=== PATIENT | male | born 1970 | race Caucasian/White ===

== ENCOUNTER 2016-09-24 20:34 | Emergency (ER) | payer OTHER ==
[2016-09-24 21:18] VITALS: BMI 4999.1
--- NOTE | 2016-09-24 21:35 | DIRPT ---
CLINICAL DATA: Cough and congestion for 1 week, syncopal episode after coughing today. EXAM: CHEST 2 VIEW COMPARISON: None. FINDINGS: Cardiomediastinal silhouette is normal. The lungs are clear without pleural effusions or focal consolidations. Trachea projects midline and there is no pneumothorax. Soft tissue planes and included osseous structures are non-suspicious. Large body habitus. IMPRESSION: Normal chest. Electronically Signed By: Wilfredo Martinez M.D. On: 09/24/2016 21:33
[2016-09-24] MEDS ORDERED: ALBUTEROL 6.7 GM MDI INH ONE (22:36)
[2016-09-24] MEDS ORDERED: ACETAMINOPHEN WITH CODEINE 5 ML UDC PO ONE (22:36)
--- NOTE | 2016-09-24 22:39 | EDPRACDOC ---
- General Information Chief Complaint: Flu-Like Symptoms Stated Complaint: SYNCOPE FROM COUGH Time Seen by Provider: 09/24/16 22:30 Information Source: Patient Home Medications: Home Medications Lisinopril 30 mg PO DAILY 10/29/15 Acetaminophen with Codeine [TYLENOL WITH CODEINE; [employer] with Codeine] 5 ml PO Q6H PRN #120 ml 09/25/16 Azithromycin [Zithromax] 250 mg PO DAILY #6 tablet 09/25/16 Prednisone [Deltasone, Orasone] 20 mg PO DAILY #20 tab 09/25/16 Allergies/Adverse Reactions: Allergies Allergy/AdvReac Type Severity Reaction Status Date / Time No Known Allergies Allergy Verified 09/24/16 21:18 - 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 Pt states tonight pt coughed so hard and continuous that he passed out. Denies fever, earache, cp, sob, abd pain, n/v, changes in bowel or bladder, leg swelling, rash. Duration: Since Injury Presyncopal phase:: Reports: Other (coughing) Syncopal phase:: Reports: Other (coughing) Postsyncopal phase:: Reports: Rapid recovery Prehospital care: Reports: None Associated Signs/Symptoms: Reports: None ED Past Medical History - History Reviewed Yes Nurses notes reviewed and agree except as marked - Patient Medical History Cardiac History: Reports: Hypertension Psychological History: Denies: Depression - Social Medical History Smoking Status: Never smoker ETOH: None Substance Abuse: None EDM Review of Systems - Review of Systems Constitutional: No Symptoms Reported. negative: Fever, Chills, Weakness, Fatigue, Loss of Appetite Eyes: No Symptoms Reported. negative: Redness, Blurred Vision, Double Vision, Discharge, Pain, Light Sensitive, Photophobia Ears: No Symptoms Reported. negative: Pain, Hearing Loss, Drainage, Ear Pulling Throat: Pain Nose: Congestion Mouth: No Symptoms Reported. negative: Pain, Drooling Respiratory: Cough Cardiovascular: Syncope Gastrointestinal: No Symptoms Reported. negative: Pain, Constipation, Nausea, Vomiting, Diarrhea, Melena, Formula Intolerance Genitourinary: No Symptoms Reported. negative: Dysuria, Hematuria, Frequency, Discharge, Bleeding, Testicular Pain, Neurological: No Symptoms Reported. negative: Headache, Dizziness, Seizure, Numbness, Weakness, Speech Difficulty, Gait Difficulty Musculoskeletal: No Symptoms Reported. negative: Neck, Chestwall, Ribs, Back, Shoulder, Arm, Elbow, Forearm, Wrist, Hand, Pelvis, Hip, Femur, Knee, Leg, Ankle , Foot Integumentary: No Symptoms Reported. negative: Itching, Rash, Bruising, Wound Allergic/Immunologic: No Symptoms Reported. negative: Hives, Itching Hematologic: No Symptoms Reported. negative: Lymphadenopathy, Easy Bruising, Easy Bleeding Psychiatric: No Symptoms Reported. negative: Anxiety, Depression, Hallucinations, Insomnia, Suicidal - Physical Exam Constitutional: Alert Oriented to: Time, Person, Place Last recorded Vital Signs: Last Vital Signs Temp 99.0 F 09/24/16 21:18 Pulse 83 09/24/16 22:32 Resp 20 09/24/16 22:32 BP 134/70 09/24/16 22:32 Pulse Ox 92 09/24/16 22:32 Oxygen Pulse Oxygen Saturation 92 O2 Device Room Air Oxygen Flow Rate Fraction of Inspired Oxygen ( FIO2) - HEENT Head: Normal ( normocephalic) Eye Exam: Normal (PERRL, EOMI, Sclera white) Oropharynx: Normal (Pharynx:Moist without exudate,Gums-no swelling) Tympanic Membrane: Normal ENT EAC: Normal Nose: Congestion Neck: Normal (FROM, trachea at midline) - Respiratory/Cardiovascular Respiratory: Normal - CTA (BBS clear to auscultation without adventitious sounds ) Cardiovascular: Normal (RRR without murmur, gallop or rub) - GI Auscultation: Normal (NABS) Palpation: Normal (Soft,No rebound or guarding, non distended) Tenderness: Non tender - Musculoskeletal Back: Normal (Non-Tender) Extremities: Normal (Normal tone, Pulses 2+ No cyanosis or edema, FROM) - Integumentary Skin: Normal, Warm, Dry Lymphatics: Normal (no adenopathy) - Neurologic Memory Impaired: Normal Motor Function: Normal (Normal tone, Pulses 2+ No cyanosis or edema, FROM) Mood Description: Normal Perception: Normal - Differential Diagnosis Dysrhythmia, Dehydration, Electrolyte Disorder, Hypoglycemia, Vasovagal - Results 09/24/16 22:44 09/24/16 22:44 09/25/16 01:15 Laboratory Results - last 24 hr 09/24/16 09/24/16 09/24/16 22:44 22:44 22:44 WBC 12.4 H RBC 4.85 Hgb 13.4 L Hct 40.4 L MCV 83 MCH 27.6 MCHC 33.2 RDW 13.6 Plt Count 253 MPV 8.5 Neut % (Auto) Cancelled Lymph % (Auto) Cancelled [place] % (Auto) Cancelled Eos % (Auto) Cancelled Baso % (Auto) Cancelled Absolute Neuts (auto) Cancelled Absolute Lymphs (auto) Cancelled Seg Neuts % (Manual) 58 Band Neutrophils % 0 Lymphocytes % (Manual) 31 Monocytes % (Manual) 8 Eosinophils % (Manual) 3 Absolute Neutrophils 7.19 Absolute Lymphocytes 3.84 Platelet Estimate Plt clumps present RBC Morphology Norm D-Dimer Quant (PE/DVT) 686 H Sodium 139 Potassium 4.4 Chloride 101 Carbon Dioxide 28 Anion Gap 14 BUN 31 H Creatinine 1.10 Estimated GFR (MDRD) > 60 Glucose 127 H Calculated Osmolality 277 Calcium 9.2 Total Bilirubin 0.5 AST 35 ALT 31 Alkaline Phosphatase 136 H Total Protein 7.9 Albumin 4.2 - EKG EKG #1 EKG Time: 22:50 Rate: bpm: 71 [place]: Normal Rhythm: NSR Block: None ST: Normal Comparison: 10/29/15 (no signficant changes) - Diagnostic Imaging Chest Image interpreted by: Radiologist IMPRESSION: No CT evidence of pulmonary embolism. Bibasilar pulmonary nodules most compatible with pneumonia. Follow-up recommended. Decision Time to Discharge: 01:15 - Departure Disposition: Home Condition: Good Final Diagnosis: Vasovagal syncope, CAP (community acquired pneumonia) Instructions: Community Acquired Pneumonia (ED), Syncope (ED) Education/Counseling Given To: Patient, Family Member Education/Counseling Given Regarding: Diagnosis, Treatment, Follow Up Referrals: Emir Strauss MD [Primary Care Provider] - One Week Prescriptions: Acetaminophen with Codeine [TYLENOL WITH CODEINE; [employer] with Codeine] 5 ml PO Q6H PRN #120 ml PRN Reason: Cough Azithromycin [Zithromax] 250 mg PO DAILY #6 tablet Prednisone [Deltasone, Orasone] 20 mg PO DAILY #20 tab Additional Instructions: Albuterol MDI 1-2 puffs every 4-6 hours as needed for shortness of breath.
[2016-09-24 22:53] LABS: MPV 8.5 fL (7.4-10.4)
[2016-09-24 23:06] LABS: BLOOD UREA NITROGEN 31 MG/DL (9-20); CALCIUM 9.2 MG/DL (8.4-10.2); CALCULATED OSMOLALITY 277 MOs/Kg (270-290); CHLORIDE 101 mEq/L (98-107); GLUCOSE 127 MG/DL (70-99); SODIUM LEVEL 139 mEq/L (137-146); TOTAL PROTEIN 7.9 G/DL (6.3-8.2)
[2016-09-24 23:29] LABS: SEG NEUTROPHIL 58 % (45-76)
[2016-09-24 23:30] LABS: TOTAL CELL COUNT 100
[2016-09-24] MEDS ORDERED: Pharmacy Review for Metformin - IV Contrast Given SCH (23:45)
[2016-09-25] MEDS ORDERED: SODIUM CHLORIDE 0.9% 10 ML FLUSH FLUSH PRN (00:14)
--- NOTE | 2016-09-25 01:12 | DIRPT ---
CLINICAL DATA: 46-year-old male with shortness of breath EXAM: CT ANGIOGRAPHY CHEST WITH CONTRAST TECHNIQUE: Multidetector CT imaging of the chest was performed using the standard protocol during bolus administration of intravenous contrast. Multiplanar CT image reconstructions and MIPs were obtained to evaluate the vascular anatomy. CONTRAST: 100 cc Isovue 370 COMPARISON: Radiograph dated 09/24/2016 FINDINGS: Bibasilar ground-glass nodular densities most compatible with pneumonia. Clinical correlation and follow-up recommended. There is no focal consolidation. No pleural effusion or pneumothorax. The central airways are patent. The thoracic aorta appears unremarkable. No CT evidence of pulmonary embolism. Top-normal right hilar lymph nodes. There is no cardiomegaly or pericardial effusion. No mediastinal adenopathy. There is apparent mild diffuse and circumferential thickening of the esophagus which may be related to underdistention. Esophagitis is not excluded. Clinical correlation is recommended. There is a 6 mm right thyroid hypodense nodule. Ultrasound may provide better evaluation. There is no axillary adenopathy. The chest wall soft tissues appear unremarkable. The osseous structures are intact. The visualized upper abdomen appear unremarkable. Review of the MIP images confirms the above findings. IMPRESSION: No CT evidence of pulmonary embolism. Bibasilar pulmonary nodules most compatible with pneumonia. Follow-up recommended. Electronically Signed By: Nilton Villanueva M.D. On: 09/25/2016 01:09
[2016-09-25 01:30] VITALS: BP 136/71; PULSE 74; TEMP 98.8
== END 2016-09-25 01:28 | disposition home or self-care (01) ==
LOC: ED 20:34
DX: J18.9 Pneumonia, unspecified organism (principal); R55 Syncope and collapse
CPT/HCPCS: 36415; 71020; 71275; 80053; 85007; 85027; 85379; 93005; 94640; 99284; A9698; J3490